=== PATIENT | female | born 1985 | race Caucasian/White ===

== ENCOUNTER → 2017-04-13 | Outpatient (CLI) | payer BC ==
[~2017-04-13] MED LIST: ALBUAER19 INH; MTR600X PO; OXYC-57 PO; PRENTAB26 PO
[2017-04-13 15:20] LABS: BASO % 0.3 %; BASO ABS # 0.02 K/uL (0-0.2); COMPLETE YES; EOS % 2.5 %; HEMATOCRIT 37.9 % (37-47); IG% 0.3 %; LYMPH % 49.5 %; LYMPH ABS # 3.32 K/uL (1.2-3.4); MEAN CELL VOLUME 93.1 fL (80-100); MEAN CORPUSCULAR HEMOGLOBIN 30.5 pg (25-34); MEAN CORPUSCULAR HGB CONC 32.7 g/dl (32-36); MEAN PLATELET VOLUME 10.1 fL (7.4-10.4); MONO % 5.2 %; NEUT % 42.2 %; PLATELET COUNT 207 K/uL (130-400); RED BLOOD COUNT 4.07 M/uL (4.2-5.4); WHITE BLOOD COUNT 6.71 K/uL (4.8-10.8)
[2017-04-13 15:35] LABS: ALT/SGPT 29 U/L (12-78); BLOOD UREA NITROGEN 15 mg/dl (7-18); CALCIUM 8.5 mg/dl (8.5-10.1); CARBON DIOXIDE 29 mmol/L (21-32); CHLORIDE 105 mmol/L (98-107); CREATININE 0.77 mg/dl (0.60-1.20); GLUCOSE 81 mg/dl (70-99); POTASSIUM 3.7 mmol/L (3.5-5.1); SODIUM 140 mmol/L (136-145); URIC ACID 3.3 mg/dl (2.6-7.2)
[2017-04-13 15:38] LABS: ALKALINE PHOSPHATASE 96 U/L (45-117); AST/SGOT 23 U/L (15-37); RHEUMATOID FACTOR < 10.0 U/mL (0-15)
[2017-04-13 16:43] LABS: LYME DISEASE AB IGG NEG (NEG); LYME DISEASE AB IGM NEG (NEG)
== END | disposition home or self-care (01) ==
LOC: C.LAB1850 14:11
DX: M19.90 Unspecified osteoarthritis, unspecified site (principal); M79.604 Pain in right leg

== ENCOUNTER → 2017-04-20 | Outpatient (CLI) | payer BC ==
--- NOTE | 2017-04-20 15:35 | DIAGNOSTIC IMAGING REPORT ---
MRI OF THE RIGHT KNEE CLINICAL HISTORY: Medial right knee pain. Joint effusion. COMPARISON STUDY: No priors. TECHNIQUE: MRI of the right knee was performed utilizing proton density, T1, and T2-weighted sequences in the axial, sagittal, coronal planes. IV contrast was not administered for this examination. The examination is degraded by motion artifact. Note that interpretation is suboptimal without plain film correlate. FINDINGS: Menisci: The medial and lateral menisci are intact. Ligaments: The anterior and posterior cruciate ligaments are intact. There is mild thickening of the medial collateral ligament with fluid seen on both sides. This is consistent with grade 1 injury. The fibers are intact. The lateral collateral ligament complex is preserved. Extensor mechanism: The extensor mechanism is intact. Hoffa's fat pad is normal in appearance. Articular cartilage and bone: The articular cartilage is intact and well maintained all 3 compartments. Normal marrow signal is preserved of the visualized bony structures. Joint effusion: There is small joint effusion. Soft tissues: The musculature surrounding the knee joint is normal in bulk and signal intensity. IMPRESSION: 1. Findings are consistent with grade 1 injury of the medial collateral ligament. The fibers remain intact. 2. Small joint effusion. 3. There is no evidence of meniscal injury, and the cruciate ligaments are preserved. 4. No bony abnormality is seen. Electronically signed by: Jonathan Nelson M.D. 04/20/2017 3:34 PM Dictated Date/Time: 04/20/2017 3:30 PM
== END | disposition home or self-care (01) ==
LOC: C.MRI 13:30
DX: M25.461 Effusion, right knee (principal)

== ENCOUNTER 2018-04-15 07:33 | Observation (INO) | payer BC, OTHER ==
[~2018-04-15] VITALS: Ht 165.1 cm; Wt 85.6 kg
[2018-04-15] VITALS (9 sets, daily range): BP systolic 118–148; BP diastolic 75–83; PULSE 77–105; TEMP 36.4–36.9; O2SAT 93–99; Ht 165.1 cm; Wt 85.6 kg
[~2018-04-15 07:33] MED LIST changes: +AMPICILLIN/SULBACTAM SOD INJ 3,000 MG in SODIUM CHLORIDE 0.9% 100ML 100 ML IV SCH
[2018-04-15] MEDS ORDERED: MoRPHine SULFATE 4 MG/ML 1 ML CARP\\VIAL IV STA ×3 (08:03→11:53)
[2018-04-15] MEDS ORDERED: SODIUM CHLORIDE 0.9% 1000ML 1,000 ML IV STA (08:03)
[2018-04-15 08:13] LABS: BASO % 0.1 %; BASO ABS # 0.02 K/uL (0-0.2); EOS % 0.1 %; EOS ABS # 0.02 K/uL (0-0.5); HEMATOCRIT 43.1 % (37-47); IG# 0.07 K/uL (0.00-0.02); LYMPH % 11.5 %; LYMPH ABS # 2.02 K/uL (1.2-3.4); MEAN CELL VOLUME 86.9 fL (80-100); MEAN CORPUSCULAR HEMOGLOBIN 30.2 pg (25-34); MEAN CORPUSCULAR HGB CONC 34.8 g/dl (32-36); MEAN PLATELET VOLUME 9.7 fL (7.4-10.4); MONO % 2.5 %; MONO ABS # 0.44 K/uL (0.11-0.59); NEUT % 85.4 %; NEUT ABS # 15.05 K/uL (1.4-6.5); PLATELET COUNT 257 K/uL (130-400); RED CELL DISTRIBUTION WIDTH CV 12.9 % (11.5-14.5); RED CELL DISTRIBUTION WIDTH SD 40.9 fL (36.4-46.3); WHITE BLOOD COUNT 17.62 K/uL (4.8-10.8)
[2018-04-15] MEDS ORDERED: DIVA250T93 PO (08:15)
[2018-04-15] MEDS ORDERED: ALPR-411 PO (08:15)
[2018-04-15] MEDS ORDERED: ONDANSETRON 4MG OD TAB PO ONE (08:15)
[2018-04-15] MEDS ORDERED: VNTHFA/IN INH (08:15)
[2018-04-15] MEDS ORDERED: TRAZ100T29 PO (08:15)
[2018-04-15 08:31] LABS: ALBUMIN 4.4 gm/dl (3.4-5.0); CALCIUM 9.3 mg/dl (8.5-10.1); CREATININE 0.83 mg/dl (0.60-1.20); POTASSIUM 3.7 mmol/L (3.5-5.1); TOTAL PROTEIN 7.8 gm/dl (6.4-8.2)
[2018-04-15] MEDS ORDERED: MoRPHine SULFATE 10 MG/ML CARP/VIAL IV STA (08:50)
[2018-04-15] MEDS ORDERED: OPTIRAY 320 IV PRN (09:15)
--- NOTE | 2018-04-15 10:00 | DIAGNOSTIC IMAGING REPORT ---
CT OF THE ABDOMEN AND PELVIS WITH CONTRAST CLINICAL HISTORY: Right-sided abdominal pain. COMPARISON STUDY: None. TECHNIQUE: Following IV administration of 118 mL of Optiray-320, axial images of the abdomen and pelvis were obtained from the lung bases to the proximal femurs. Images were reviewed in the axial, sagittal, and coronal planes. IV contrast was administered without complication. A dose lowering technique was utilized adhering to the principles of ALARA. CT DOSE: 437.50 mGy.cm FINDINGS: Lung bases are clear. The liver, spleen, adrenal glands, kidneys and pancreas are normal. There is no biliary or pancreatic ductal dilatation. There is no peripancreatic or pericholecystic infiltration. Caliber of small and large bowel is normal. A small appendicolith is noted. The appendix is mildly dilated, measuring 8 mm in caliber with mild periappendiceal infiltration. The appendix is retrocecal in location. No abscess or free air is present. A dominant right ovarian follicle is noted. There is no lymphadenopathy. There are no suspicious osseous lesions. IMPRESSION: Acute appendicitis. Mildly dilated, fluid-filled retrocecal appendix with mild periappendiceal infiltration. No free air or abscess. Electronically signed by: Alejandro Ambrocio M.D. 04/15/2018 9:58 AM Dictated Date/Time: 04/15/2018 9:49 AM
[2018-04-15] MEDS ORDERED: ONDANSETRON INJ 2 MG/ML 2 ML VIAL IV STA (10:17)
[2018-04-15] MEDS: LACTATED RINGER'S 1000ML 1,000 ML IV SCH ×2 (11:00→17:19)
--- NOTE | 2018-04-15 11:00 | History and Physical ---
History & Physical Date & Time of Service: Apr 15, 2018 at 10:55 Chief Complaint: Constant Abdominal Pain, Vomiting, Diarrhea Primary Care Physician: Marshal Carter Jr,D.O. History of Present Illness 32 y/o female with abdominal pain that began around 9 PM then awoke at 3 AM with more severe pain. No fevers or chills. Nothing to eat since 9 PM. Past Medical/Surgical History Medical Problems: (1) Gestational hypertension w/o significant proteinuria in 3rd trimester Surgical history: inguinal hernia repair T&A wisdom teeth Social History Smoking Status: Never Smoker Multi-Drug Resistant Organisms History of MDRO: No Allergies Coded Allergies: Dust (Verified Allergy, Mild, sneezing,itchy throat, 04/15/18) Home Medications Scheduled Alprazolam (Alprazolam), 0.5 MG PO HS Divalproex Sodium (Depakote Delay Rel), 250 MG PO HS Trazodone Hcl (Trazodone), 100 MG PO DAILY Scheduled PRN Albuterol Hfa (Ventolin Hfa), 2-4 PUFFS INH Q6H PRN for SOB/Wheezing Review of Systems Constitutional: No fever, No chills Abdomen: + pain, + nausea, + vomiting Physical Exam Vital Signs Date Time Temp Pulse Resp B/P (MAP) Pulse Ox O2 Delivery O2 Flow Rate FiO2 04/15/18 09:12 53 04/15/18 08:59 54 20 152/84 100 Room Air 04/15/18 07:37 36.6 60 20 131/87 100 Room Air General Appearance: WD/WN, no apparent distress Respiratory/Chest: lungs clear, normal breath sounds Cardiovascular: regular rate, rhythm, no edema Abdomen/GI: soft, + tenderness (RLQ, flank) Skin: normal color, warm/dry Diagnostics Laboratory Results Results Past 24 Hours Test 04/15/18 08:02 04/15/18 09:30 Range/Units White Blood Count 17.62 4.8-10.8 K/uL Red Blood Count 4.96 4.2-5.4 M/uL Hemoglobin 15.0 12.0-16.0 g/dL Hematocrit 43.1 37-47 % Mean Corpuscular Volume 86.9 80-100 fL Mean Corpuscular Hemoglobin 30.2 25-34 pg Mean Corpuscular Hemoglobin Concent 34.8 32-36 g/dl Platelet Count 257 130-400 K/uL Mean Platelet Volume 9.7 7.4-10.4 fL Neutrophils (%) (Auto) 85.4 % Lymphocytes (%) (Auto) 11.5 % Monocytes (%) (Auto) 2.5 % Eosinophils (%) (Auto) 0.1 % Basophils (%) (Auto) 0.1 % Neutrophils # (Auto) 15.05 1.4-6.5 K/uL Lymphocytes # (Auto) 2.02 1.2-3.4 K/uL Monocytes # (Auto) 0.44 0.11-0.59 K/uL Eosinophils # (Auto) 0.02 0-0.5 K/uL Basophils # (Auto) 0.02 0-0.2 K/uL RDW Standard Deviation 40.9 36.4-46.3 fL RDW Coefficient of Variation 12.9 11.5-14.5 % Immature Granulocyte % (Auto) 0.4 % Immature Granulocyte # (Auto) 0.07 0.00-0.02 K/uL Sodium Level 139 136-145 mmol/L Potassium Level 3.7 3.5-5.1 mmol/L Chloride Level 107 98-107 mmol/L Carbon Dioxide Level 24 21-32 mmol/L Anion Gap 8.0 3-11 mmol/L Blood Urea Nitrogen 9 7-18 mg/dl Creatinine 0.83 0.60-1.20 mg/dl Est Creatinine Clear Calc Drug Dose 103.2 ml/min Estimated GFR () 106.6 Estimated GFR (Non- 92.0 BUN/Creatinine Ratio 10.7 10-20 Random Glucose 122 70-99 mg/dl Calcium Level 9.3 8.5-10.1 mg/dl Total Bilirubin 0.5 0.2-1 mg/dl Direct Bilirubin 0.1 0-0.2 mg/dl Aspartate Amino Transf (AST/SGOT) 19 15-37 U/L Alanine Aminotransferase (ALT/SGPT) 28 12-78 U/L Alkaline Phosphatase 80 45-117 U/L Total Protein 7.8 6.4-8.2 gm/dl Albumin 4.4 3.4-5.0 gm/dl Lipase 148 73-393 U/L Human Chorionic Gonadotropin, Qual NEG NEG Urine Color YELLOW Urine Appearance CLEAR CLEAR Urine pH >= 9.0 4.5-7.5 Urine Specific [place] > 1.045 1.000-1.030 Urine Protein NEG NEG Urine Glucose (UA) NEG NEG Urine Ketones 1+ NEG Urine Occult Blood NEG NEG Urine Nitrite NEG NEG Urine Bilirubin NEG NEG Urine Urobilinogen NEG NEG Urine Leukocyte Esterase NEG NEG Urine WBC (Auto) 1-5 0-5 /hpf Urine RBC (Auto) 0-4 0-4 /hpf Urine Hyaline Casts (Auto) 1-5 0-5 /lpf Urine Epithelial Cells (Auto) >30 0-5 /lpf Urine Bacteria (Auto) NEG NEG Urine Renal Epithelial Cells 0-5 /lpf Diagnostic Radiology CT OF THE ABDOMEN AND PELVIS WITH CONTRAST CLINICAL HISTORY: Right-sided abdominal pain. COMPARISON STUDY: None. TECHNIQUE: Following IV administration of 118 mL of Optiray-320, axial images of the abdomen and pelvis were obtained from the lung bases to the proximal femurs. Images were reviewed in the axial, sagittal, and coronal planes. IV contrast was administered without complication. A dose lowering technique was utilized adhering to the principles of ALARA. CT DOSE: 437.50 mGy.cm FINDINGS: Lung bases are clear. The liver, spleen, adrenal glands, kidneys and pancreas are normal. There is no biliary or pancreatic ductal dilatation. There is no peripancreatic or pericholecystic infiltration. Caliber of small and large bowel is normal. A small appendicolith is noted. The appendix is mildly dilated, measuring 8 mm in caliber with mild periappendiceal infiltration. The appendix is retrocecal in location. No abscess or free air is present. A dominant right ovarian follicle is noted. There is no lymphadenopathy. There are no suspicious osseous lesions. IMPRESSION: Acute appendicitis. Mildly dilated, fluid-filled retrocecal appendix with mild periappendiceal infiltration. No free air or abscess. Electronically signed by: Alejandro Ambrocio M.D. 04/15/2018 9:58 AM Dictated Date/Time: 04/15/2018 9:49 AM Impression Assessment and Plan Acute appendicitis Laparoscopic appendectomy this afternoon by Dr. Perea. Preop Unasyn and SCDs.
[2018-04-15] MEDS ORDERED: NITROGLYCERIN 0.4 MG SL PER TAB CHARGE ONE (12:34)
[2018-04-15] MEDS ORDERED: NITROGLYCERIN/D5W 100 MCG/ML BTL ONE (12:35)
[2018-04-15] MEDS ORDERED: MIDAZOLAM HCL 1 MG/ML 2ML VIAL ONE (13:15)
[2018-04-15] MEDS ORDERED: FENTANYL CITRATE INJ 50 MCG/1 ML 2 ML VIAL ONE ×2 (13:16→14:56)
[2018-04-15] MEDS ORDERED: ROCURONIUM BROMIDE 10 MG/ML 5 ML VIAL ONE (13:16)
[2018-04-15] MEDS ORDERED: PROPOFOL IV EMULSION 10 MG/ML 20 ML VIAL ONE ×2 (13:16→13:56)
[2018-04-15] MEDS ORDERED: BUPIVACAINE 0.5 % 5 MG/1 ML PF 10ML VIAL ONE (13:22)
[2018-04-15] MEDS ORDERED: DEXAMETHASONE SOD INJ 4 MG/ML VIAL ONE (13:48)
[2018-04-15] MEDS ORDERED: ONDANSETRON INJ 2 MG/ML 2 ML VIAL ONE (13:49)
--- NOTE | 2018-04-15 13:50 | EMERGENCY ROOM VISIT NOTE ---
ED Visit Note First contact with patient: 07:40 Chief Complaint: Abdominal pain. History of Present Illness: Ms. Brandon is a 32 year-old white female who ambulates into the ED complaining of periumbilical abdominal pain. Historically patient reports has no gastrointestinal disorders and is status post section without complications. Patient reports acute onset of mild periumbilical pain that started last night at 9 PM, approximately 11 hours ago, she reports initially it was mild. She went to bed and then was awoken from sleep at 3 AM with acute onset of severe pain. Pain remained in the umbilicus area but was slightly right sided prominent. Since that time her pain has been constant but has slightly waxed and waned in intensity. She describes her pain as a combination of sharp and cramping. Her pain is nonradiating but she does have discomfort in the upper and lower quadrants. She currently rates her discomfort 6/10. She has not identified any aggravating or alleviating factors related to the pain. Associated with her pain she has been nauseated and has had 5 episodes of bilious vomiting and she has had one episode of watery stools. She reports she attempted to take Pepto-Bismol for her discomfort but had an acute onset of nausea and vomited the medicine without any relief of her discomfort or symptoms. Additionally she does report over the last few months she has been having a couple episodes of nonpainful bilious vomiting and loose stools but has not had it evaluated. This has also caused her to have a decreased appetite and mild weight loss of 10 pounds. Patient denies fevers, chills, sweats, skin eruptions, skin color changes, upper respiratory tract symptoms, shortness of breath, chest pain, hematemesis, constipation, rectal bleeding, black/tarry stools, urinary symptoms, hematuria, vaginal bleeding, vaginal discharge, back/flank pain. Review of Systems: As noted above in history of present illness. All body systems were reviewed and found to be negative as noted above. Past Medical History: Asthma, anxiety, status post inguinal hernia repair, tonsillectomy, wisdom teeth extraction and section. Current Medications: Medications Dose Route/Sig Max Daily Dose Days Date Category Ventolin Hfa (Albuterol) 200 Puffs/85718 Mcg Aers 2-4 Puffs INH Q6H PRN 04/15/18 Reported Trazodone (Trazodone HCl) 100 Mg Tab 100 Mg PO DAILY 04/15/18 Reported Depakote Delay Rel (Divalproex Sodium) 250 Mg Tab 250 Mg PO HS 04/15/18 Reported Alprazolam 0.5 Mg Tab 0.5 Mg PO HS 04/15/18 Reported Allergies to Medications: Patient denies. Social History: Patient is currently employed; she feels safe in her home environment; he denies tobacco use. Physical Examination: Vital Signs: Date Time Temp Pulse Resp B/P (MAP) Pulse Ox O2 Delivery O2 Flow Rate FiO2 04/15/18 12:47 75 18 140/89 96 04/15/18 12:46 75 18 140/89 96 Room Air 04/15/18 11:02 71 18 138/91 95 Room Air 04/15/18 09:12 53 04/15/18 08:59 54 20 152/84 100 Room Air 04/15/18 08:58 152/84 04/15/18 07:37 36.6 60 20 131/87 100 Room Air GENERAL: 32-year-old female in moderate distress due to pain, nontoxic-appearing , afebrile and hemodynamically stable. NEUROLOGICAL: Awake, alert and oriented to person, place and time. Answering questions appropriately and following commands. Normal gait. Good hand eye coordination. SKIN: Warm, dry and pink. No soft tissue eruptions or trauma noted. HEENT: Atraumatic and normocephalic. PERRL. Sclera white and conjunctiva pink. Oral cavity moist and pink. Pharynx is nonerythematous or edematous. Speech normal. No lymphadenopathy. Trachea midline. No jugular venous distention. BACK: No tenderness over the bony spine. No CVA tenderness. THORAX: Lungs sounds are clear to auscultation and equal bilaterally with symmetrical chest wall. No wheezing, rales or rhonchi. No crepitus, tenderness , subcutaneous air or deformities noted. HEART: Regular rate and rhythm. No gallops, rubs or murmurs are appreciated. ABDOMEN: Flat and soft with mild diffuse tenderness that is prominent in the epigastric and right upper quadrants and just superior to McBurney's point in the right lower quadrant. Positive Han test. Negative heel tap, obturator and psoas sign. Positive bowel sounds in all quadrants. No guarding, rigidity or organomegaly. EXTREMITIES: Moves all extremities well on command and with purpose. All distal neurovascular statuses are intact and equal bilaterally. ED Course: Patient is assessed as noted above. Patient's medication list was reviewed. Laboratory Testing: Test 04/15/18 08:02 04/15/18 09:30 Range/Units White Blood Count 17.62 4.8-10.8 K/uL Red Blood Count 4.96 4.2-5.4 M/uL Hemoglobin 15.0 12.0-16.0 g/dL Hematocrit 43.1 37-47 % Mean Corpuscular Volume 86.9 80-100 fL Mean Corpuscular Hemoglobin 30.2 25-34 pg Mean Corpuscular Hemoglobin Concent 34.8 32-36 g/dl Platelet Count 257 130-400 K/uL Mean Platelet Volume 9.7 7.4-10.4 fL Neutrophils (%) (Auto) 85.4 % Lymphocytes (%) (Auto) 11.5 % Monocytes (%) (Auto) 2.5 % Eosinophils (%) (Auto) 0.1 % Basophils (%) (Auto) 0.1 % Neutrophils # (Auto) 15.05 1.4-6.5 K/uL Lymphocytes # (Auto) 2.02 1.2-3.4 K/uL Monocytes # (Auto) 0.44 0.11-0.59 K/uL Eosinophils # (Auto) 0.02 0-0.5 K/uL Basophils # (Auto) 0.02 0-0.2 K/uL RDW Standard Deviation 40.9 36.4-46.3 fL RDW Coefficient of Variation 12.9 11.5-14.5 % Immature Granulocyte % (Auto) 0.4 % Immature Granulocyte # (Auto) 0.07 0.00-0.02 K/uL Sodium Level 139 136-145 mmol/L Potassium Level 3.7 3.5-5.1 mmol/L Chloride Level 107 98-107 mmol/L Carbon Dioxide Level 24 21-32 mmol/L Anion Gap 8.0 3-11 mmol/L Blood Urea Nitrogen 9 7-18 mg/dl Creatinine 0.83 0.60-1.20 mg/dl Est Creatinine Clear Calc Drug Dose 103.2 ml/min Estimated GFR () 106.6 Estimated GFR (Non- 92.0 BUN/Creatinine Ratio 10.7 10-20 Random Glucose 122 70-99 mg/dl Calcium Level 9.3 8.5-10.1 mg/dl Total Bilirubin 0.5 0.2-1 mg/dl Direct Bilirubin 0.1 0-0.2 mg/dl Aspartate Amino Transf (AST/SGOT) 19 15-37 U/L Alanine Aminotransferase (ALT/SGPT) 28 12-78 U/L Alkaline Phosphatase 80 45-117 U/L Total Protein 7.8 6.4-8.2 gm/dl Albumin 4.4 3.4-5.0 gm/dl Lipase 148 73-393 U/L Human Chorionic Gonadotropin, Qual NEG NEG Urine Color YELLOW Urine Appearance CLEAR CLEAR Urine pH >= 9.0 4.5-7.5 Urine Specific [place] > 1.045 1.000-1.030 Urine Protein NEG NEG Urine Glucose (UA) NEG NEG Urine Ketones 1+ NEG Urine Occult Blood NEG NEG Urine Nitrite NEG NEG Urine Bilirubin NEG NEG Urine Urobilinogen NEG NEG Urine Leukocyte Esterase NEG NEG Urine WBC (Auto) 1-5 0-5 /hpf Urine RBC (Auto) 0-4 0-4 /hpf Urine Hyaline Casts (Auto) 1-5 0-5 /lpf Urine Epithelial Cells (Auto) >30 0-5 /lpf Urine Bacteria (Auto) NEG NEG Urine Renal Epithelial Cells 0-5 /lpf IV Contrast Abdominal/Pelvic CT: Was reviewed by myself and read by the radiologist and shows acute appendicitis with a mildly dilated and fluid filled retrocecal appendix with mild periappendiceal infiltration. No abscess or free air. Patient was hydrated with normal saline and she received 4 mg of morphine IV for pain and 4 mg of Zofran IV for nausea. Patient was reassessed multiple times during her stay in the emergency department. On subsequent reevaluation patient received an additional 10 mg of morphine IV and 4 mg of Zofran IV for pain and nausea. Patient's case was reviewed with Dr. Nina; we agreed on diagnostic approach, treatment, disposition and plan. Patient's case was consulted with Mr. Cuong PA-C, general surgery; for surgical evaluation. Patient was educated about today's findings. Clinical Impression: Acute appendicitis. Decision-Making: Initially my differential diagnosis I considered acute appendicitis, ectopic , bowel obstruction, acute cholecystitis, ectopic , ureter calculus and other causes. Disposition and Plan: Patient be taken to the operating room for an appendectomy ; please see surgery's notes and orders for final disposition and plan.
[2018-04-15] MEDS ORDERED: LIDOCAINE HCL 2% 2 ML VIAL (20MG/ML) ONE (13:57)
[2018-04-15] MEDS ORDERED: GLYCOPYRROLATE INJ 0.2 MG/ML VIAL ONE (14:22)
[2018-04-15] MEDS ORDERED: KETOROLAC TROMETHAMINE 30 MG/ML VIAL ONE (14:22)
[2018-04-15] MEDS ORDERED: NEOSTIGMINE METHYLSULFATE 5 MG/5 ML SYR ONE (14:22)
--- NOTE | 2018-04-15 14:40 | [facility] Post Operative Brief Note ---
Immediate Operative Summary Operative Date Apr 15, 2018. Pre-Operative Diagnosis Acute Appendicitis Post-Operative Diagnosis Acute Appendicitis Procedure(s) Performed Laparoscopic Appendectomy Surgeon Dr. Nguyễn Sheeter Operator Surgeon(s) Dayan Saunders PA-C Estimated Blood Loss 3cc Findings Consistent with Post-Op Diagnosis acute non perforated appendicitis Specimens A: appendix Drains None Anesthesia Type General Complication(s) none Disposition Accompanied Pt To Recover: no Disposition: Recovery Room / PACU
--- NOTE | 2018-04-15 14:45 | [facility] Operative Report ---
Operative Report Operative Date Apr 15, 2018. Pre-Operative Diagnosis Acute Appendicitis Post-Operative Diagnosis Same Procedure(s) Performed Acute nonperforated appendicitis Surgeon Dr. Nguyễn Advertising Rep Surgeon(s) Dayan Saunders PA-C Estimated Blood Loss 3cc Findings Acute, nonperforated, suppurative appendicitis Specimens A: appendix Drains None Anesthesia General Complication(s) None Disposition Recovery Room / PACU Indications 32-year-old female presented to the emergency department with signs and symptoms consistent with appendicitis, confirmed by CT scan. Plan for laparoscopic appendectomy. The risks of the procedure were discussed, all questions were answered, and the patient agreed to proceed with surgery as planned. Description of Procedure The patient was properly identified, consented, and taken to the operating room where she was placed in the supine position. General endotracheal anesthesia was induced. SCDs and a safety belt were placed. Preoperative antibiotics were administered. A Salter catheter was not placed. The patient's abdomen was prepped and draped in the standard sterile fashion. Surgical timeout was performed and all parties were in agreement that this was the correct patient and procedure to be performed and we continued as planned. A curvilinear infraumbilical incision was made with electrocautery and deepened down to the fascia with blunt dissection. The base of the umbilicus was grasped with a Radha and elevated towards the ceiling. An incision was made in the midline fascia with a knife and entry into the peritoneum was confirmed. Stay suture of 0 Vicryl was placed and a Soto trocar was inserted. The abdomen was insufflated with carbon dioxide which the patient tolerated without incident. The laparoscope was inserted and no damage from initial trocar placement was noted, no gross abnormalities were noted within the 4 quadrants the abdomen. 5 mm ports were then placed in the left lower quadrant with care not to damage the epigastric vessels, and in the suprapubic midline with care not to damage the bladder. The patient was placed in Trendelenburg position and rotated towards the left. The small bowel was swept away from the right lower quadrant. There is some midline adhesions of omentum to the anterior abdominal wall that were not taken down. The cecum was grasped with an atraumatic grasper exposing the appendix. The appendix was retrocecal and moderately inflamed and there was no evidence of perforation. There was minimal fluid in the pelvis. A window was created between the base of the appendix and the mesoappendix. A conrad loaded endoscopic stapler was then used to divide the appendix at its base. The harmonic scalpel was then used to mobilize the right colon by taking down the white line of Toldt and to divide the mesoappendix. Hemostasis was good. The appendix was placed in an Endo Catch bag and removed through the umbilical port site. The right lower quadrant and pelvis was irrigated and hemostasis was found to be good. 5 mm trochars were removed under direct visualization and the abdomen was allowed to collapse. The umbilical port site fascia was closed with 0 Vicryl suture. The wound was irrigated, and the skin of all ports was closed with 4-0 Monocryl subcuticular sutures. Dermabond was placed over the wounds. The patient was extubated in the operating room and taken to the PACU where she recovered without apparent incident. All sponge, instrument and needle counts were correct at the conclusion of the procedure. The patient tolerated the procedure well. The physician's machine assistant was present and scrubbed for the entire to the case. She was critical in positioning the patient, prepping and draping, retraction and exposure, driving the laparoscope, closure the incisions, placement of the dressings. I attest to the content of the Intraoperative Record and any orders documented therein. Any exceptions are noted below.
[2018-04-15] MEDS ORDERED: OXYC-57 PO (14:56)
[2018-04-15] MEDS ORDERED: HYDROmorphone INJ 2 MG/ML SYR/VIAL ONE (14:56)
--- NOTE | 2018-04-15 14:59 | Discharge Instructions ---
Discharge Instructions Date of Service Apr 15, 2018. Admission Reason for Admission: Constant Abdominal Pain, Vomiting, Diarrhea Discharge Discharge Diagnosis / Problem: Constant Abdominal Pain, Vomiting, Diarrhea Discharge Goals Goal(s): Decrease discomfort, Improve function Activity Recommendations Activity Limitations: as noted below Lifting Limitations: no more than 10 pounds Exercise/Sports Limitations: until after follow-up appointment May Resume Sexual Activity: after follow-up appointment Shower/Bathe: tomorrow Driving or Machine Use: resume 1 day after discharge . Instructions / Follow-Up Instructions / Follow-Up You have surgical glue, Dermabond, over your incisions. You may shower tomorrow, but please do not soak or scrub your incisions. Please follow-up with Dr. Nguyễn in the General Surgery Clinic located at [address] [place] [address] [facility] in 1 week. Please call the clinic at to make this appointment. Please call the clinic with any questions or concerns. Current Hospital Diet Patient's current hospital diet: Clear Liquid Diet Discharge Diet Recommended Diet: Regular Diet Procedures Procedures Performed: Laparoscopic Appendectomy Pending Studies Studies pending at discharge: yes List of pending studies: Pathology report. Medical Emergencies . Who to Call and When: Medical Emergencies: If at any time you feel your situation is an emergency, please call 911 immediately. . Non-Emergent Contact Non-Emergency issues call your: Primary Care Provider, Surgeon Call Non-Emergent contact if: temperature is above 101.5, your pain is not controlled, wound has increased drainage, wound has increased redness . "Provider Documentation" section prepared by Dayan Almanza. .
[2018-04-15] MEDS ORDERED: MEPERIDINE HCL 25 MG/ML CARP ONE (15:00)
[2018-04-15] MEDS ORDERED: MoRPHine SULFATE 4 MG/ML 1 ML CARP\\VIAL IV PRN (15:00)
[2018-04-15] MEDS ORDERED: ONDANSETRON INJ 2 MG/ML 2 ML VIAL IV PRN ×2 (15:00)
[2018-04-15] MEDS ORDERED: FENTANYL CITRATE INJ 50 MCG/1 ML 2 ML VIAL IV PRN (15:00)
[2018-04-15] MEDS ORDERED: MEPERIDINE HCL 25 MG/ML CARP IV PRN (15:00)
[2018-04-15] MEDS ORDERED: PROMETHAZINE HCL INJ 12.5 MG in SODIUM CHLORIDE 0.9% 50ML 50 ML IV PRN (15:00)
[2018-04-15] MEDS ORDERED: EpHEDrine SULFATE INJ 50 MG/ML AMP IV PRN (15:00)
[2018-04-15] MEDS ORDERED: ATROPINE SULFATE 0.1 MG/ML 5ML SYR IV PRN (15:00)
[2018-04-15] MEDS ORDERED: HYDROmorphone INJ 1 MG/ML SYR IV PRN (15:00)
[2018-04-15] MEDS ORDERED: MoRPHine SULFATE 2 MG/ML CARP IV PRN (15:00)
--- NOTE | 2018-04-15 15:27 | Anesthesiology Progress Note ---
Anesthesia Post Op Note Date & Time Apr 15, 2018 at 15:27 Vital Signs Pain Intensity: 8 Vital Signs Past 12 Hours Date Time Temp Pulse Resp B/P (MAP) Pulse Ox O2 Delivery O2 Flow Rate FiO2 04/15/18 15:10 57 16 127/75 100 Oxymask 10 04/15/18 15:01 87 16 118/71 100 Oxymask 10 04/15/18 14:52 36.5 81 16 115/82 100 Oxymask 10 04/15/18 12:47 75 18 140/89 96 04/15/18 12:46 75 18 140/89 96 Room Air 04/15/18 11:02 71 18 138/91 95 Room Air 04/15/18 09:12 53 04/15/18 08:59 54 20 152/84 100 Room Air 04/15/18 08:58 152/84 04/15/18 07:37 36.6 60 20 131/87 100 Room Air Notes Mental Status: alert / awake / arousable, participated in evaluation Pt Amnestic to Procedure: Yes Nausea / Vomiting: adequately controlled Pain: improving with treatment Airway Patency, RR, SpO2: stable & adequate BP & HR: stable & adequate Hydration State: stable & adequate Anesthetic Complications: no major complications apparent
[2018-04-15] MEDS ORDERED: IV FLUIDS COMPLETED PRN (16:15)
[2018-04-15] MEDS: OXYCODONE/ACETAMINOPHEN 5-325 TAB PO PRN ×2 (17:42→21:58)
[2018-04-15] MEDS ORDERED: ALBUTEROL HFA 8 GM INHALER INH PRN (18:00)
[2018-04-15] MEDS ORDERED: NURSING VERBAL MED ORDER ONE (20:00)
[2018-04-15] MEDS: AMPICILLIN/SULBACTAM SOD INJ 3,000 MG in SODIUM CHLORIDE 0.9% 100ML 100 ML IV SCH (20:42)
[2018-04-15] MEDS: MoRPHine SULFATE 2 MG/ML CARP IV PRN (20:42)
[2018-04-15] MEDS ORDERED: ALPRAZOLAM 0.5 MG TAB PO SCH (21:00)
[2018-04-15] MEDS ORDERED: TRAZODONE HCL 100 MG TAB PO SCH (21:00)
[2018-04-15] MEDS ORDERED: DIVALPROEX SODIUM 250 MG DELAY REL TAB PO SCH (21:00)
[2018-04-16] MEDS: AMPICILLIN/SULBACTAM SOD INJ 3,000 MG in SODIUM CHLORIDE 0.9% 100ML 100 ML IV SCH (01:57)
[2018-04-16] MEDS: LACTATED RINGER'S 1000ML 1,000 ML IV SCH ×2 (01:58→10:30)
[2018-04-16] MEDS: MoRPHine SULFATE 2 MG/ML CARP IV PRN (03:31)
[2018-04-16 03:32] VITALS: BP 123/80; PULSE 83; TEMP 36.9; O2SAT 94
--- NOTE | 2018-04-16 06:11 | Surgery Progress Note ---
Surgery Progress Note Date of Service Apr 16, 2018. Subjective Post OP Day: 1 + feeling well, + ambulating, + pain controlled, + diet (Tolerating regular diet ), No complaints, No bowel movement, No flatus, No nausea, No vomiting Objective Vital Signs: Date Time Temp Pulse Resp B/P (MAP) Pulse Ox O2 Delivery O2 Flow Rate FiO2 04/16/18 03:32 36.9 83 20 123/80 (94) 94 Room Air 04/16/18 00:05 Room Air 04/15/18 22:50 36.7 105 18 118/76 (90) 93 Room Air 04/15/18 19:30 36.4 80 17 120/83 (95) 94 Room Air 04/15/18 18:27 36.8 84 16 118/75 (89) 97 Room Air 04/15/18 17:30 36.7 90 16 148/82 (104) 98 Room Air 04/15/18 17:00 36.5 79 16 127/79 (95) 99 Room Air 04/15/18 16:30 36.4 98 16 118/78 (91) 98 Room Air 04/15/18 16:13 36.9 77 16 132/78 95 Room Air 04/15/18 16:08 95 Room Air 04/15/18 16:00 36.9 77 16 132/78 (96) 95 Room Air 04/15/18 15:35 36.6 04/15/18 15:30 59 16 114/70 99 Nasal Cannula 2 04/15/18 15:20 62 16 114/71 97 Nasal Cannula 2 04/15/18 15:10 57 16 127/75 100 Oxymask 10 04/15/18 15:01 87 16 118/71 100 Oxymask 10 04/15/18 14:52 36.5 81 16 115/82 100 Oxymask 10 04/15/18 12:47 75 18 140/89 96 04/15/18 12:46 75 18 140/89 96 Room Air 04/15/18 11:02 71 18 138/91 95 Room Air 04/15/18 09:12 53 04/15/18 08:59 54 20 152/84 100 Room Air 04/15/18 08:58 152/84 04/15/18 07:37 36.6 60 20 131/87 100 Room Air General Appearance: WD/WN, no apparent distress Head: normocephalic, atraumatic Respiratory/Chest: no respiratory distress Abdomen: non distended, soft, no organomegaly, + tenderness (Incisional) Incision(s): clean, dry, intact, no erythema, no drainage Laboratory Results: Results Past 24 Hours Test 04/15/18 08:02 04/15/18 09:30 Range/Units White Blood Count 17.62 4.8-10.8 K/uL Red Blood Count 4.96 4.2-5.4 M/uL Hemoglobin 15.0 12.0-16.0 g/dL Hematocrit 43.1 37-47 % Mean Corpuscular Volume 86.9 80-100 fL Mean Corpuscular Hemoglobin 30.2 25-34 pg Mean Corpuscular Hemoglobin Concent 34.8 32-36 g/dl Platelet Count 257 130-400 K/uL Mean Platelet Volume 9.7 7.4-10.4 fL Neutrophils (%) (Auto) 85.4 % Lymphocytes (%) (Auto) 11.5 % Monocytes (%) (Auto) 2.5 % Eosinophils (%) (Auto) 0.1 % Basophils (%) (Auto) 0.1 % Neutrophils # (Auto) 15.05 1.4-6.5 K/uL Lymphocytes # (Auto) 2.02 1.2-3.4 K/uL Monocytes # (Auto) 0.44 0.11-0.59 K/uL Eosinophils # (Auto) 0.02 0-0.5 K/uL Basophils # (Auto) 0.02 0-0.2 K/uL RDW Standard Deviation 40.9 36.4-46.3 fL RDW Coefficient of Variation 12.9 11.5-14.5 % Immature Granulocyte % (Auto) 0.4 % Immature Granulocyte # (Auto) 0.07 0.00-0.02 K/uL Sodium Level 139 136-145 mmol/L Potassium Level 3.7 3.5-5.1 mmol/L Chloride Level 107 98-107 mmol/L Carbon Dioxide Level 24 21-32 mmol/L Anion Gap 8.0 3-11 mmol/L Blood Urea Nitrogen 9 7-18 mg/dl Creatinine 0.83 0.60-1.20 mg/dl Est Creatinine Clear Calc Drug Dose 103.2 ml/min Estimated GFR () 106.6 Estimated GFR (Non- 92.0 BUN/Creatinine Ratio 10.7 10-20 Random Glucose 122 70-99 mg/dl Calcium Level 9.3 8.5-10.1 mg/dl Total Bilirubin 0.5 0.2-1 mg/dl Direct Bilirubin 0.1 0-0.2 mg/dl Aspartate Amino Transf (AST/SGOT) 19 15-37 U/L Alanine Aminotransferase (ALT/SGPT) 28 12-78 U/L Alkaline Phosphatase 80 45-117 U/L Total Protein 7.8 6.4-8.2 gm/dl Albumin 4.4 3.4-5.0 gm/dl Lipase 148 73-393 U/L Human Chorionic Gonadotropin, Qual NEG NEG Urine Color YELLOW Urine Appearance CLEAR CLEAR Urine pH >= 9.0 4.5-7.5 Urine Specific [place] > 1.045 1.000-1.030 Urine Protein NEG NEG Urine Glucose (UA) NEG NEG Urine Ketones 1+ NEG Urine Occult Blood NEG NEG Urine Nitrite NEG NEG Urine Bilirubin NEG NEG Urine Urobilinogen NEG NEG Urine Leukocyte Esterase NEG NEG Urine WBC (Auto) 1-5 0-5 /hpf Urine RBC (Auto) 0-4 0-4 /hpf Urine Hyaline Casts (Auto) 1-5 0-5 /lpf Urine Epithelial Cells (Auto) >30 0-5 /lpf Urine Bacteria (Auto) NEG NEG Urine Renal Epithelial Cells 0-5 /lpf Assessment & Plan POD #1 s/p lap appy Pain controlled. Abdomen soft, some incisional tenderness. Tolerating regular diet, no N/V. Urinating without issue. Ambulating in hallway. Overall doing well, probable d/c today. Contact with questions or concerns.
[2018-04-16] MEDS: OXYCODONE/ACETAMINOPHEN 5-325 TAB PO PRN ×3 (06:42→12:53)
[2018-04-16 07:25] VITALS: BP 124/84; PULSE 72; TEMP 36.8; O2SAT 99
[2018-04-16 07:45] VITALS: O2SAT 99
--- NOTE | 2018-04-16 08:29 | Anesthesiology Progress Note ---
Anesthesia Post Op Note Date & Time Apr 16, 2018 at 08:29 Vital Signs Vital Signs Past 12 Hours Date Time Temp Pulse Resp B/P (MAP) Pulse Ox O2 Delivery O2 Flow Rate FiO2 04/16/18 07:45 99 Room Air 04/16/18 07:25 36.8 72 20 124/84 (97) 99 Room Air 04/16/18 03:32 36.9 83 20 123/80 (94) 94 Room Air 04/16/18 00:05 Room Air 04/15/18 22:50 36.7 105 18 118/76 (90) 93 Room Air Notes Mental Status: alert / awake / arousable, participated in evaluation Pt Amnestic to Procedure: Yes Nausea / Vomiting: adequately controlled Pain: adequately controlled Airway Patency, RR, SpO2: stable & adequate BP & HR: stable & adequate Hydration State: stable & adequate Anesthetic Complications: no major complications apparent
[2018-04-16] MEDS ORDERED: TRAZODONE HCL 100 MG TAB PO SCH (09:00)
[2018-04-16 09:45] VITALS: BP 143/102; PULSE 81; O2SAT 98
[2018-04-16] MEDS ORDERED: ALPRAZOLAM 0.5 MG TAB PO ONE (10:14)
[2018-04-16] MEDS ORDERED: ALPRAZOLAM 0.5 MG TAB PO PRN (10:15)
[2018-04-16] MEDS ORDERED: NURSING VERBAL MED ORDER ONE (10:15)
[2018-04-16 11:30] VITALS: BP 126/84; PULSE 81; TEMP 36.7; O2SAT 98
[2018-04-16 12:26] VITALS: BP 126/84; PULSE 81; TEMP 36.7; O2SAT 98
--- NOTE | 2018-04-22 09:36 | Discharge Summary ---
Discharge Summary Date of Service Apr 22, 2018. Admission Date/Reason Apr 15, 2018 at 14:54 Appendicitis. Discharge Date/Disposition Apr 16, 2018 Home Diagnosis Principal Diagnosis: Appendicitis Procedure(s) Performed Laparoscopic Appendectomy Medication Reconciliation Continued Medications: Albuterol Hfa (Ventolin Hfa) 200 Puffs/76384 Mcg Aers 2-4 PUFFS INH Q6H PRN for SOB/Wheezing Alprazolam (Alprazolam) 0.5 Mg Tab 0.5 MG PO HS Divalproex Sodium (Depakote Delay Rel) 250 Mg Tab 250 MG PO HS Trazodone Hcl (Trazodone) 100 Mg Tab 100 MG PO DAILY Admission Physical Exam As per Admitting History & Physical. Hospital Course 32-year-old female presented with periumbilical pain that migrated to the right lower quadrant. No similar episodes in the past. On exam she is tender to palpation in the right lower quadrant with guarding at McBurney's point. Prior surgical history includes and left inguinal hernia repair. Elevated WBC in ED. CT scan shows retrocecal acute appendicitis. Risks of the procedure were discussed to include but are not limited to bleeding, infection, normal appendix, need for future more extensive surgery, conversion to open, perforation or abscess, damage to surrounding structures, and the risks of anesthesia. Consent obtained. Pre-Op Diagnosis- Acute Appendicitis Post-Op Diagnosis- Same as Pre-Op Post-Operatively, patient was admitted to Med/Surg floor for overnight observation POD#1- pain controlled, voiding on own without difficulty, tolerating regular diet. Patient deemed eligible for discharge. Return precautions provided to patient. Post-Op verbal and written instructions provided. Patient to follow-up in [facility] with Dr. Nguyễn in 1 week. Discharge Instructions Please refer to the electronic Patient Visit Report (Discharge Instructions) for additional information.
== END 2018-04-16 13:42 | disposition home or self-care (01) ==
LOC: C.EDB 07:35 → C.MSN 14:54 → ENRESERV 15:29
PROVIDERS: ADMIT Surgery; ATTEND Surgery
DX: K35.80 Unspecified acute appendicitis (principal); E66.9 Obesity, unspecified; Z68.31 Body mass index [BMI] 31.0-31.9, adult